=== PATIENT | male | born 1990 | race Caucasian/White ===

== ENCOUNTER 2019-11-23 15:36 | Observation (INO) ==
[2019-11-23] MEDS ORDERED: *HR* FentaNYL (PF) 100 MCG/2 ML VIAL IVP ONE (16:18)
[2019-11-23] MEDS ORDERED: Naloxone 0.4 MG/ML INJ IVP PRN (17:20)
[2019-11-23] MEDS ORDERED: Ondansetron ODT 4 MG TAB.RAPDIS SL PRN (17:20)
[2019-11-23] MEDS: *HR* OxyCODONE Immed Rel 5 MG TABLET PO PRN (18:38)
[2019-11-23] MEDS: D5% in 0.45% NACL 1,000 ML IVC SCH (18:38)
[2019-11-24] MEDS: *HR* OxyCODONE Immed Rel 5 MG TABLET PO PRN (00:44)
[2019-11-24] MEDS: D5% in 0.45% NACL 1,000 ML IVC SCH (03:22)
[2019-11-24] MEDS ORDERED: cefOXitin 1,000 MG, 0.9 % Sodium Chloride 1,000 ML IR ONE (08:00)
[2019-11-24] MEDS ORDERED: *HR* HYDROmorphone PF 0.5 MG/0.5 ML SYRINGE IVP PRN (16:14)
[2019-11-24] MEDS ORDERED: *HR* OxyCODONE Immed Rel 5 MG TABLET PO PRN (16:14)
[2019-11-24] MEDS ORDERED: Acetaminophen IV 1,000 MG/100 ML INFUS..BTL ONE (16:29)
[2019-11-24] MEDS ORDERED: Famotidine 20 MG/2 ML VIAL ONE (16:29)
[2019-11-24] MEDS ORDERED: CefOXitin 1,000 MG VIAL ONE (16:51)
[2019-11-24] MEDS ORDERED: Lidocaine -MPF 2% 2 ML VIAL ONE (16:53)
[2019-11-24] MEDS ORDERED: *HR* Propofol 200 MG/20 ML VIAL IVP ONE (16:53)
[2019-11-24] MEDS ORDERED: Ondansetron 4 MG/2 ML VIAL ONE ×2 (16:53→17:33)
[2019-11-24] MEDS ORDERED: *HR* Succinylcholine 200 MG/10 ML VIAL IVP ONE (16:53)
[2019-11-24] MEDS ORDERED: *HR* Rocuronium Bromide 50 MG/5 ML VIAL ONE (16:53)
[2019-11-24] MEDS ORDERED: *HR* Midazolam HCl 2 MG/2 ML VIAL ONE (16:53)
[2019-11-24] MEDS ORDERED: *HR* FentaNYL (PF) 100 MCG/2 ML VIAL ONE (16:53)
[2019-11-24] MEDS ORDERED: CefOXitin 2,000 MG VIAL ONE (17:23)
[2019-11-24] MEDS ORDERED: Dexamethasone 4 MG/ML VIAL ONE (17:33)
[2019-11-24] MEDS ORDERED: Ketorolac 30 MG/ML VIAL ONE (17:38)
[2019-11-24] MEDS ORDERED: 0.9 % Sodium Chloride 1,000 ML IVC SCH (19:07)
[2019-11-24] MEDS: *HR* OxyCODONE/APAP 5/325 TABLET PO PRN (21:54)
[2019-11-25] MEDS ORDERED: cefOXitin 2,000 MG in Water for inj. (sterile) 20 ML IVP SCH
[2019-11-25] MEDS ORDERED: CefOXitin 2,000 MG VIAL ONE
[2019-11-25] MEDS: *HR* OxyCODONE/APAP 5/325 TABLET PO PRN (02:09)
[2019-11-25 06:36] VITALS: BP 113/63
[2019-11-25] MEDS ORDERED: Ibuprofen 800 MG TABLET PO ONE (07:56)
[2019-11-25] MEDS ORDERED: Ketorolac 15 MG/ML VIAL IVP ONE ×2 (08:26→08:27)
[2019-11-25] MEDS ORDERED: Simethicone 80 MG TAB.CHEW PO STA (08:29)
[2019-11-25] MEDS ORDERED: hydrOXYzine pamoate 25 MG CAPSULE PO PRN (08:30)
== END 2019-11-25 10:02 | disposition home or self-care (01) ==
LOC: 3ANU 15:36 → EMEROOARM 15:36 → 3ANU 17:38
PROVIDERS: ADMIT Surgery; ATTEND Surgery